=== PATIENT | male | born 1980 | race African-American/Black ===

== ENCOUNTER 2017-01-05 06:14 | Day surgery (SDC) | payer OTHER ==
[~2017-01-05] VITALS: Ht 182.9 cm; Wt 107.7 kg
[2017-01-05] VITALS (7 sets, daily range): BP systolic 118–141; BP diastolic 55–90; PULSE 65–88; RESP 15–17; O2SAT 95–99
[2017-01-05] MEDS: Lactated Ringer's 1,000 ML IV SCH ×2 (05:34→07:35)
[~2017-01-05 06:14] MED LIST: CeFAZolin Inj 2 GM in IV Premix 1 EACH IV ONE
[2017-01-05] MEDS ORDERED: Dexamethasone 4 mg/mL Inj ONE (06:15)
[2017-01-05] MEDS ORDERED: Ondansetron 2 mg/mL 2 mL Inj ONE (06:15)
[2017-01-05] MEDS ORDERED: Propofol 10,000 mCg/mL 20 mL Inj ONE (06:15)
[2017-01-05] MEDS ORDERED: fentaNYL-PF 50 mCg/mL 2 mL Inj ONE (06:15)
--- NOTE | 2017-01-05 07:10 | PCM.HPANE ---
Patient Data Date of Service: Jan 05, 2017 Surgeon Admitting Provider: Attending Provider:Jennifer Rosado DPM Primary Care Physician:Other,Physician Other Provider:All Sandoval Anesthesia Reason for Visit Left Foot Hallux Valgus Ht/WT & BMI Height (Feet): 6 Height (Inches): 0.00 Weight (Kilograms): 107.7 Body Mass Index 32.00 Allergies Uncoded Allergies: NKDA (Allergy, Unknown, 12/28/16) Past Anesthesia History Anesthesia History: Denies:: Anesthesia Reactions, Fam Anesthesia Reaction, Fam Malignant Hypertherm, Malignant Hyperthermia Diabetes History Hx Diabetes?: No MRSA MRSA: No Medications Home Meds Incl Beta Ben: No History History of ENT Problems?: No HEENT History: Denies:: Cataracts Glaucoma Denture Type: None Teeth Condition: Within Normal Limits Hx of Heart Problems?: No Cardiovascular History: Denies:: AICD Abdominal Aortic Aneurism Atrial Fibrillation Cardiac Surgery Chest Pain Congestive Heart Failure Coronary Artery Disease Edema Heart Murmur Hypertension Irregular Heartbeat Pacemaker Peripheral Vascular Rheumatic Fever Thrombophlebitis Valvular Heart Disease Other History/Comments No reported symptoms Hx of Respiratory Problem?: No Respiratory History: Denies:: Asthma COPD Chest Surgery Cough Dyspnea Emphysema Hemoptysis Oxygen Administration Pneumonia Pulmonary Embolism Tuberculosis Use of C-PAP Machine Use of Inhalers / NEBS Hx Neurologic Problems?: No Hx of GI Problems?: No Hx of Problems?: No Male Hx: Denies:: Prostate Problems Scrotal Mass Testicular Surgery Skin History: Denies:: History Skin Disorders? Pressure Ulcers Hx Musculoskeletal Problems?: No Hx Surgeries?: Yes (ORIF finger 2012) Hx Any Other Health Problems?: Yes Other History: Positive for:: Hospitalization (2012 [facility]) Denies:: Cancer Endocrine Disease Thyroid Disease History Blood Transfusions: Positive for:: Accept Blood Products? Denies:: Blood Transfuse Reaction Blood Transfusions Hx Diabetes: No Hx Alcohol Use: NoHx Substance Use: No Smoking Status: Never Smoker Have You Smoked inLast 12 mo: No Stop/Bang Treated for Sleep Apnea?: No Do You Have a CPAP Machine?: No S-Snoring: Do You Snore Loudly: No T-Tired: feel tired, fatigued: No O-Obsered: Observed not breath: No P-Blood Pressure: treated: No B- Body Mass Index > 35 kg/m2: No A- Age over 50: No N- Neck Large Circumference: No G- Gender Male: Yes RIKA Total Score: 1 RIKA Risk Assessment: Low Risk, <3 Yes RIKA Category 2: Yes Risk Assessment Category Category 1A: Patient has history of documented sleep apnea, and HAS NOT received any narcotic, sedative or anesthesia administration during this stay. Category 1B: Patient has history of documented sleep apnea, and HAS received any narcotic , sedative or anesthesia administration during this stay Category 2: Patient has SUSPECTED Obstructive Sleep Apnea, and HAS received any narcotic , sedative or anesthesia administration during this stay. Category 3: Patient has SUSPECTED Obstructive Sleep Apnea and HAS NOT received narcotic, sedative or anesthesia administration during this stay. Category 4: Outpatient in Procedural Areas with known sleep apnea or who screen positive for High Risk via the STOP/BANG questionnaire. Exam Exam Vital Signs Vital Signs Date Time Temp Pulse Resp B/P Pulse Ox O2 Delivery O2 Flow Rate FiO2 01/05/17 06:43 36.3 68 16 141/84 98 Room Air General Appearance: Alert, Oriented X3, Cooperative, No Acute Distress HEENT/AIRWAY: MP 2 Lungs: Clear to Auscultation, Normal Air Movement Heart: Exam Unremarkable, Regular Rate/Rhythm, No Murmurs/Rubs/Gallops Meds/Labs/Diagnostics Admission Meds Current Medications Lactated Ringer's (Lr) 1,000 ml @ 120 mls/hr [id number] IV Last administered on t 05:34; Start 01/05/17 at 05:00; Stop 01/05/17 at 13:19 Plan Impression Patient chart reviewed, patient interviewed and anesthestic plan with risks, benefits, and alternatives discussed, and informed consent obtained. NPO per Anesth. Guidelines: Yes ASA Physical Status: ASA1 Normal Healthy Anesthetic Plan: GA (With local block per surgeon.) Bene/Risks/Altern/Consents: Yes HP Complete Prior to Induction: Yes Amando Guy DO Jan 05, 2017 07:10
[2017-01-05] MEDS ORDERED: Lactated Ringer's 500 ML IV PRN (07:11)
[2017-01-05] MEDS ORDERED: Lactated Ringer's 1,000 ML IV SCH (07:11)
[2017-01-05] MEDS ORDERED: Phenylephrine 10,000 mCg/mL Inj IVPUSH PRN (07:15)
[2017-01-05] MEDS ORDERED: MetoCLOpramide 5 mg/mL 2 mL Inj IVPUSH PRN (07:15)
[2017-01-05] MEDS ORDERED: Ondansetron 2 mg/mL 2 mL Inj IVPUSH PRN (07:15)
[2017-01-05] MEDS ORDERED: EPHEDrine Sulfate 50 mg/mL Inj IVPUSH PRN (07:15)
[2017-01-05] MEDS ORDERED: HYDROmorphone 1 mg/mL Inj IVPUSH PRN (07:15)
[2017-01-05] MEDS ORDERED: fentaNYL-PF 50 mCg/mL 2 mL Inj IVPUSH PRN (07:15)
[2017-01-05] MEDS ORDERED: Dexamethasone 4 mg/mL Inj IVPUSH PRN (07:15)
[2017-01-05] MEDS ORDERED: Lidocaine 2%-Epi 1:100,000 20 mL Inj NERVEBLOCK ONE (08:08)
[2017-01-05] MEDS ORDERED: oxyCODONE-Acetamin 5-325 mg Tablet PO PRN (10:05)
--- NOTE | 2017-01-05 10:12 | PCM.PODPO ---
Podiatry Operative Report Date of Service: Jan 05, 2017 Date of Service Jan 05, 2017 Pre Operative Diagnosis Left hallux valgus Post Operative Diagnosis Left hallux valgus Gouty arthropathy Procedure Left Lapidus bunionectomy Surgeon Surgeon: Jennifer Rosado DPM Assistants: None Indication for Procedure Pain in 1st Metatarsophalangeal joint. Gout, swelling. Findings Crystals and 1st MTP joint erosion found to be about 30% of surface area. Details of Procedure Patient was identified in the preoperative holding area and brought back to the operating room. He was placed on the operating table in supine position. The timeout protocol was completed. General anesthesia was initiated. The left foot was prepped and draped in usual aseptic manner. The ankle tourniquet was inflated to 250 mmHg. An incision was made on the dorsomedial aspect of the left foot encompassing the first metatarsocuneiform and metatarsophalangeal joints. The incision was carried bluntly to expose the dorsal tendons. The dorsal medial cutaneous nerve was retracted medially and protected throughout the case. An incision was made lateral to the extensor hallucis longus tendon to expose the metatarsocuneiform joint. The capsular tissue was incised with the #15 scalpel and the joint surfaces resected using a guidewire to achieve lateral and plantar translation of the first metatarsal. A K wire was used for temporary fixation. The first metatarsophalangeal joint capsule was incised medially, the bunion eminence resected with a bone saw, a sample of tissue with crystals sent to the lab for further examination. A gouty tophus is expected. The adductor hallucis tendon was released laterally. The area was irrigated with normal saline. The temporary K wire was removed, the joint surfaces fenestrated with a 2.0 drill bit, then irrigated once again to make sure that all cartilaginous tissue was gone. Fixation was then performed with the partially threaded screw for compression from distal dorsal to plantar proximal across the metatarsocuneiform articulation with fluoroscopic guidance. A Y- shaped 5 hole plate was used to buttress the construct. Only one of the proximal screws could not be used across to make sure that the compression screw was not violated. Even so, the buttressing nature of the plates will be strong enough to withhold stress with weightbearing. The tourniquet was released after a total of 90 minutes. The wound was irrigated once again with normal saline. The deep tissues were closed with 3-0 Vicryl. A medial capsulorrhaphy was performed at the first metatarsophalangeal joint. This resulted in good anatomic correction as an end result. Dressing consisted of Jose silk, normal saline moistened gauze, Kerlix, 4 inch Coban. The patient's left foot was placed in the Western walker. He was weaned off of general anesthesia and taken to the recovery room with vital signs stable and the vascular status to the left foot intact Grafts, Implants: Implants-See Implant Record Complications There were no periprocedural complications identified. Condition Stable Anesthetic Administered: GA Drains: None Catheters: None Output, Estimated Blood Loss: 20 (ml) Blood Admin during surgery: No Surgical Cast or Splint: Post-op Boot Surgical Specimen Removed: Yes Specimen sent to Pathology: Yes Surgical Specimen description: Capsule specimen Post Operative Plan The patient will be nonweightbearing on the left foot using crutches or knee scooter. Follow-up appointment is set up in 1 week. He was instructed not to change his own dressing until then. Pain medication use and pain control were discussed in detail. Postoperative expectations were discussed in detail with him and his . Jennifer Rosado DPM Jan 05, 2017 10:12
--- NOTE | 2017-01-05 10:47 | PCM.ANEP1 ---
Post Anesthesia PACU Phase 1 Assessment Date of Service: Jan 05, 2017 Vital Signs Vital Signs Date Time Temp Pulse Resp B/P Pulse Ox O2 Delivery O2 Flow Rate FiO2 01/05/17 10:44 65 16 135/76 99 Room Air 01/05/17 10:28 71 15 118/55 96 01/05/17 10:10 72 16 134/82 95 01/05/17 10:05 74 17 136/78 96 01/05/17 10:00 87 17 130/78 95 Room Air 01/05/17 09:55 36.8 88 15 123/90 96 Room Air 01/05/17 06:43 36.3 68 16 141/84 98 Room Air Anesthetic Administered: GA Level of Alertness: Awake, talking OWEN's with Equal Strength: Yes Pain: No Nausea or Vomiting: No CV Function & Hydration Stable: Yes Airway Device: Oxygen Delivery: Room Air Lungs: Clear to Auscultation, Normal Air Movement Dermatome Level: Full Sensation PACU Phase 2 Assessment Complications: No Follow up Care: No Patient Instructions Provided: Yes Amando Guy DO Jan 05, 2017 10:47
--- NOTE | 2017-01-07 17:56 | PATH ---
SURGICAL PATHOLOGY Attending Physician:Jennifer Rosado CASE STATUS: Signed Out PATIENT NAME: ARTURO PATRICIA PID: [id number] : 1980 DATE COLLECTED:01/05/2017 14:53 SPECIMEN: Joint, Cartilage, Shaving CLINICAL HISTORY: LEFT FOOT HALLUX VALGUS 1. 1ST METATARSAL PHALANGEAL JOINT CAPSULE FINAL DIAGNOSIS: 1.FIRST METATARSAL PHALANGEAL JOINT CAPSULE, BIOPSY: SMALL FRAGMENT OF BENIGN CARTILAGE. NO EVIDENCE OF ATYPIA OR MALIGNANCY. ICD10 M20.10 GROSS DESCRIPTION: The specimen consists of a 0.4 x 0.4 x 0.3 cm, dodd-white portion of tissue which is inked blue and entirely submitted in one cassette. ([facility] [place]:[id number]) MICRO DESCRIPTION: See diagnosis. ICD-9 CODES: CPT CODES: 1: 75663 Electronically Signed Out Lashonda Harris MD [facility] Pathology [facility] [address], [place] [address] Technical component performed at [facility], [address] [place] [address] Ave[address], [place], [address]
== END 2017-01-05 23:59 | disposition home or self-care (01) ==
LOC: SAS 06:14
PROVIDERS: ATTEND Podiatrist
DX: M20.12 Hallux valgus (acquired), left foot (principal); M10.9 Gout, unspecified
CPT/HCPCS: 28297; J0690; J1100; J2250; J2405; J3010; J7120